=== PATIENT | female | born 1960 | race Two or more races ===

== ENCOUNTER 2019-02-09 09:05 | Emergency (ER) | payer OTHER ==
[~2019-02-09] VITALS: Ht 157.5 cm; Wt 90.7 kg
[~2019-02-09 09:05] MED LIST: ENBREL50 MG/M1 SQ; VASOTEC10 MG NGT
[2019-02-09] MEDS ORDERED: SYNTHROID100 MCG PO (09:17)
[2019-02-09] MEDS ORDERED: PREDNISOLONE5 G1 (09:17)
[2019-02-09] MEDS ORDERED: DICLOFENAC SODI50 MG (09:18)
== END 2019-02-09 10:35 | disposition home or self-care (01) ==
LOC: ER 09:05
DX: R07.81 Pleurodynia (principal)

== ENCOUNTER 2021-05-07 08:31 | Emergency (ER) | payer OTHER ==
[~2021-05-07] VITALS: Ht 157.5 cm; Wt 108.9 kg
[~2021-05-07 08:31] MED LIST changes: +DICLOFENAC SODI50 MG; +PREDNISOLONE5 G1; +SYNTHROID100 MCG PO
[2021-05-07] MEDS ORDERED: ENALAPRIL MALEA10 MG PO (08:41)
== END 2021-05-07 12:17 | disposition home or self-care (01) ==
LOC: ER 08:31
DX: B34.9 Viral infection, unspecified (principal); Z03.818 Encounter for observation for suspected exposure to other biological agents ruled out

== ENCOUNTER 2021-10-03 10:58 | Outpatient (CLI) | payer OTHER ==
[~2021-10-03 10:58] MED LIST changes: +ENALAPRIL MALEA10 MG PO
== END 2021-10-03 11:06 | disposition home or self-care (01) ==
LOC: SONOGRAMA 10:58
PROVIDERS: ATTEND Obstetrics & Gynecology Obstetrics
DX: R10.2 Pelvic and perineal pain (principal); D25.1 Intramural leiomyoma of uterus

== ENCOUNTER 2021-10-08 13:21 | Outpatient (CLI) | payer OTHER | END 2021-10-08 13:22 | disposition home or self-care (01) | LOC: MAMO-SONO 13:21 | PROVIDERS: ATTEND Obstetrics & Gynecology Obstetrics | DX: N60.01 Solitary cyst of right breast (principal); N60.02 Solitary cyst of left breast ==

== ENCOUNTER 2022-08-03 12:12 | Emergency (ER) | payer OTHER ==
[~2022-08-03] VITALS: Ht 157.5 cm; Wt 108.9 kg
[2022-08-03] MEDS ORDERED: ZITHROMAX500 MG PO (16:02)
== END 2022-08-03 16:35 | disposition home or self-care (01) ==
LOC: ER 12:12
DX: B34.9 Viral infection, unspecified (principal); Z20.822 Contact with and (suspected) exposure to COVID-19

== ENCOUNTER 2024-09-15 11:48 | Emergency (ER) | payer OTHER ==
[~2024-09-15] VITALS: Ht 157.5 cm; Wt 98.9 kg
[~2024-09-15 11:48] MED LIST changes: +METHOTREXATE2.5 MG PO; +NORFLEX100MG PO; +ZITHROMAX500 MG PO
[2024-09-15] MEDS ORDERED: ENALAPRILAT DIHYDRATE 2.5 MG/2 ML VIAL IV STA (13:52)
[2024-09-15] MEDS ORDERED: cloNIDine HCL 0.2 MG TABLET PO STA (13:52)
[2024-09-15] MEDS ORDERED: CLONIDINE HCL 0.1 MG TABLET PO ONE (14:06)
[2024-09-15] MEDS ORDERED: ENALAPRILAT DIHYDRATE 1.25 MG/ML VIAL IV ONE (14:07)
[2024-09-15 14:27] LABS: HEMATOCRIT 44.1 % (36.0-45.00); HEMOGLOBIN 14.8 g/dL (12.0-15.00); MEAN CELL VOLUME 95.5 fL (80.00-100.00); MEAN CORPUSCULAR HGB CONC 33.5 g/dl (32.0-36.0); PLATELET COUNT 345 K/uL (150-450); RED BLOOD COUNT 4.62 M/uL (4.00-6.00); RED CELL DISTRIBUTION WIDTH 15.1 % (11.5-14.5)
[2024-09-15 15:34] LABS: ALBUMIN 3.9 gm/dL (3.4-5.0); BILIRUBIN TOTAL 0.61 mg/dL (0.3-1.2); CREATININE SERUM 0.86 mg/dL (0.55-1.02); GFR 66.86; GLOBULINA 3.7 G/DL (2.4-3.5); POTASSIUM 4.28 mEq/L (3.5-5.1); TOTAL PROTEIN 7.6 gm/dL (6.4-8.2)
== END 2024-09-15 16:11 | disposition home or self-care (01) ==
LOC: ER 11:51
PROVIDERS: General Practice
DX: I10 Essential (primary) hypertension (principal)

== ENCOUNTER → 2025-03-13 | Emergency (ER) | payer OTHER ==
[~2025-03-13] VITALS: Ht 157.5 cm; Wt 86.2 kg
[~2025-03-13] MED LIST changes: +DOLOGESIC 500-1 EACH; +ENBREL50 MG/1 M2; +FOLIC ACID0.8 M1; +KATERZIA1 MG/1 ML; +KETOROLAC TROMETHAMINE 60 MG VIAL IM ONE; +METFORMIN HCL500 M3; +ORPHENADRINE CITRATE 30 MG/ML AMPUL IM ONE; +PRILOSEC OTC20 MG; +ZESTORETIC 20-1 EACH; +ZETIA10 MG
== END | disposition home or self-care (01) ==
LOC: ER 09:45
DX: M25.552 Pain in left hip (principal); E03.8 Other specified hypothyroidism; E11.9 Type 2 diabetes mellitus without complications; Z79.84 Long term (current) use of oral hypoglycemic drugs